=== PATIENT | female | born 1980 | race Caucasian/White ===

== ENCOUNTER → 2016-09-06 | Outpatient (CLI) | payer OTHER | LOC: SLEEP 21:30 | DX: G47.33 Obstructive sleep apnea (adult) (pediatric) (principal) | CPT/HCPCS: 95811 ==

== ENCOUNTER → 2016-09-07 | Outpatient (CLI) | payer OTHER | LOC: SLEEP 07:00 | DX: G47.33 Obstructive sleep apnea (adult) (pediatric) (principal) | CPT/HCPCS: 95805 ==

== ENCOUNTER → 2021-11-11 | Outpatient (CLI) | payer OTHER ==
[~2021-11-11] MED LIST: ALDACTAZIDE 251 EACH PO; AMARYL4 MG PO; COZAAR100 MG PO; EFFEXOR XR150 MG PO; GLUCOPHAGE1000 MG PO; LANSOPRAZOLE15 MG PO; MONTELUKAST SOD10 MG PO; SYNTHROID25 MCG PO
== END ==
LOC: KOH-I 14:38
DX: M79.672 Pain in left foot (principal); M79.671 Pain in right foot; M19.072 Primary osteoarthritis, left ankle and foot; M19.071 Primary osteoarthritis, right ankle and foot
CPT/HCPCS: 73630